=== PATIENT | female | born 1985 | race Two or more races ===

== ENCOUNTER 2018-03-20 11:12 | Inpatient (IN) | payer OTHER ==
[2018-03-20 13:13] LABS: URINE APPEARANCE CLEAR; URINE BILIRUBIN NEGATIVE (<2.0 mg/dL); URINE COLOR YELLOW; URINE GLUCOSE (UA) NEGATIVE (NEGATIVE); URINE KETONE NEGATIVE (NEGATIVE); URINE LEUK ESTERASE TRACE (NEGATIVE); URINE NITRITE NEGATIVE (NEGATIVE); URINE PROTEIN NEGATIVE (NEGATIVE); URINE UROBILINOGEN NEGATIVE mg/dL (0.2-1.0)
[2018-03-20 13:54] LABS: BASO % 0.5 % (0-2.0); EOS % 0.9 % (0-4.5); HEMATOCRIT 38.1 % (32.4-45.2); HEMOGLOBIN 12.9 GM/dL (10.7-15.3); LYMPH % 20.5 % (8-40); MCH 28.8 pg (25.7-33.7); MCHC 33.8 g/dl (32.0-36.0); MEAN CELL VOLUME 85.1 fl (80-96); MEAN PLT VOLUME 11.2 fl (7.5-11.1); MONO % 9.2 % (3.8-10.2); NEUT % 68.9 % (42.8-82.8); PLATELET COUNT 215 K/MM3 (134-434); RBC 4.48 M/mm3 (3.60-5.2); RDW 14.6 % (11.6-15.6); RETICULOCYTES 1.45 % (0.5-1.5); WHITE BLOOD COUNT 9.1 K/mm3 (4.0-10.0)
[2018-03-20 14:01] LABS: ANION GAP 8 MMOL/L (8-16); BLOOD UREA NITROGEN 11 mg/dL (7-18); CALCIUM 8.8 mg/dL (8.5-10.1); CHLORIDE 108 mmol/L (98-107); CO2 22 mmol/L (21-32); CREATININE 0.7 mg/dL (0.55-1.02); GLUCOSE,RANDOM 69 mg/dL (74-106); POTASSIUM 4.3 mmol/L (3.5-5.1); SGPT/ALT 15 U/L (12-78); SODIUM 138 mmol/L (136-145); URIC ACID 4.9 mg/dL (2.6-7.2)
[2018-03-20 14:05] LABS: GAMMA GLUTAMYL TRANSPEPTIDASE 25 U/L (5-85); SGOT/AST 11 U/L (15-37)
[2018-03-20 14:06] LABS: INR 0.9 (0.83-1.09); PROTHROMBIN TIME (PATIENT) 10.2 SEC (9.7-13.0)
[2018-03-20 14:09] LABS: ACTIVATED PTT 27.1 SECONDS (25.2-36.5)
[2018-03-20 14:12] LABS: EPI CELLS RARE /HPF (FEW)
[2018-03-20] MEDS ORDERED: ELECTROLYTE-148 SOLN 500 ML IV ONE ×2 (15:15→15:45)
[2018-03-20] MEDS ORDERED: TUBERCULIN PPD 5 TU/0.1ML SYRINGE (IN PATIENT USE ONLY) ID ONE (15:15)
[2018-03-20] MEDS ORDERED: CITRIC ACID/SODIUM CITRATE 30 ML UNIT-DOSE CUP PO ONE (15:15)
[2018-03-20 15:30] VITALS: BMI 34.9
[2018-03-20] MEDS ORDERED: OXYTOCIN 20 UNITS in 0.9% NS 40 UNIT/2,000 ML INFUS.BAG IV ONE (16:06)
[2018-03-20] MEDS ORDERED: morphine SULFATE/Preservative Free 0.5 MG/ML (1cc Syringe) ONE (16:08)
[2018-03-20] MEDS ORDERED: PHENYLEPHRINE HCL 10 MG/1 ML SINGLE DOSE VIAL ONE (16:08)
[2018-03-20] MEDS ORDERED: SODIUM CHLORIDE 0.9% P/F 10 ML VIAL IJ ONE ×2 (16:09→16:10)
[2018-03-20] MEDS ORDERED: ceFAZolin SODIUM 1 GM VIAL ONE ×2 (16:10→23:04)
--- NOTE | 2018-03-20 16:32 | HP ---
Past Medical History - Primary Care Physician PCP:: Prateek Person - Admission Chief Complaint: 37 weeks, previous c/s, HTN , SGA, oligo, for repeat c/s History of Present Illness: 32 yo f 37 weeks with previous c/s , hx of SGA baby , hx of Oligo,and has gestational HTN , case discussed with M Dr Arroyo , advised delivery, risks discussed with patient , agreed to have repeat c/s, risks discussed History Source: Patient Limitations to Obtaining History: No Limitations - Past Medical History ...: 3 ...Para: 1 ...: 1 ...Induced : 1 ...EDC by Sono: 04/11/18 - Past Surgical History Past Surgical History: Yes: Hx Myomectomy: No Hx Transabdominal Cerclage: No - Smoking History Smoking history: Never smoked - Alcohol/Substance Use Hx Alcohol Use: No - Social History Usual Living Arrangement: Yes: With Spouse History of Recent Travel: No Home Medications - Allergies Allergies/Adverse Reactions: Allergies Allergy/AdvReac Type Severity Reaction Status Date / Time No Known Allergies Allergy Verified 03/20/18 12:04 - Home Medications Home Medications: Ambulatory Orders Vitamins (Sjr) - 1 tab PO DAILY 03/20/18 Physical Exam - Maternity Vital Signs: Vital Signs Temperature 98.4 F 03/20/18 15:00 Pulse Rate 63 03/20/18 15:00 Respiratory Rate 20 03/20/18 15:00 Blood Pressure 154/92 03/20/18 15:00 O2 Sat by Pulse Oximetry (%) - Labs Lab Results: CBC, BMP 03/20/18 13:13 03/20/18 13:13
[2018-03-20] MEDS ORDERED: morphine SULFATE/Preservative Free 0.5 MG/ML (1cc Syringe) SPIN ONE (16:36)
[2018-03-20] MEDS ORDERED: IBUPROFEN 600 MG TABLET (FP) PO PRN ×2 (16:56→17:39)
[2018-03-20] MEDS ORDERED: ONDANSETRON 4 MG/2 ML VIAL IVPUSH PRN (16:56)
[2018-03-20] MEDS ORDERED: METHYLERGONOVINE MALEATE 0.2 MG/1 ML AMP IM PRN (17:39)
[2018-03-20] MEDS ORDERED: BENZOCAINE 20% 57 GM BOTTLE TP PRN (17:39)
[2018-03-20] MEDS ORDERED: oxyCODONE HCL 5 MG TABLET PO PRN (17:39)
[2018-03-20] MEDS ORDERED: WITCH HAZEL 50% (TUCKS) 40 PAD/JAR PAD TP PRN (17:39)
[2018-03-20] MEDS ORDERED: BENZOCAINE 28 GM HEMORRHOIDAL OINTMENT PR PRN (17:39)
[2018-03-20] MEDS ORDERED: diphenhydrAMINE HCL 25 MG CAPSULE (FP) PO PRN (17:39)
[2018-03-20] MEDS ORDERED: OXYTOCIN 20 UNITS in 0.9% NS 20 UNIT/1,000 ML INFUS.BAG IV SCH (17:45)
[2018-03-20 18:31] LABS: VENOUS PC02 46.3 mmHg (38-52); VENOUS PH 7.31 (7.32-7.42); VENOUS PO2 26.8 mmHg (28-48)
[2018-03-20] MEDS ORDERED: LABETALOL HCL 200 MG TABLET (FP) PO PRN (18:48)
[2018-03-20] MEDS: NIFEdipine E.R. 30 MG TABLET (FP) PO SCH (19:30)
[2018-03-20] MEDS ORDERED: IBUPROFEN 800 MG/8 ML IJ IVPB ONE (19:41)
[2018-03-20] MEDS: IBUPROFEN 800 MG/8 ML IJ IVPB PRN (19:45)
[2018-03-20] MEDS ORDERED: MAGNESIUM 4GM/H20 - 4 GM/100 ML IVPB IVPB ONE (20:07)
[2018-03-20] MEDS ORDERED: MAGNESIUM SULFATE 20GM/500ML - 20 GM/500 ML INFUS.BAG ONE (20:07)
[2018-03-20] MEDS ORDERED: OXYTOCIN 20 UNITS in 0.9% NS 20 UNIT/1,000 ML INFUS.BAG IV ONE (20:45)
[2018-03-20] MEDS ORDERED: LACTATED RINGERS SOLUTION 1,000 ML IV SCH (21:00)
[2018-03-20] MEDS ORDERED: MAGNESIUM SULFATE IN WATER 4 GM/100 ML IVPB IVPB ONE (21:00)
[2018-03-20] MEDS ORDERED: MAGNESIUM SULFATE 20GM/500ML - 20 GM/500 ML INFUS.BAG IVPB ONE (21:30)
--- NOTE | 2018-03-20 22:37 | OP ---
DATE OF OPERATION: 03/20/2018 PREOPERATIVE DIAGNOSES: , 37 weeks, previous section, oligohydramnios, small for gestation age, -induced hypertension. POSTOPERATIVE DIAGNOSES: , 37 weeks, previous section, oligohydramnios, small for gestation age, -induced hypertension. PROCEDURE: Repeat low segment transverse section. SURGEON: Sanju Person MD FUNERAL ATTENDANT: OLEG York ANESTHESIA: Spinal. ANESTHESIOLOGIST: Adam Salgado MD ESTIMATED BLOOD LOSS: 500 mL. OPERATION: Patient was taken to the operating room, and under adequate spinal anesthesia, abdomen and perineum was prepped and draped. Pfannenstiel abdominal skin incision was made. Abdominal wall was cut layer by layer until peritoneum was exposed and incised. Upon entering the abdominal cavity, lower uterine segment was identified, and uterovesical fold of peritoneum established, bladder was pushed down. Then, with the lower blade of the Pablo retractor in the pelvis, a low transverse uterine incision was made. Incision extended laterally. Amniotic sac was entered, clear fluid, minimal amniotic fluid was noted. Head delivered without any difficulty. Live baby was delivered. Placenta was delivered manually. There was a true knot in the cord. Then the uterine cavity was cleaned of all the remaining tissue. Uterine incision was closed in 2 layers with first layer with 0 Biosyn continuous suture. The second layer with 0 Biosyn imbricating the first layer. Bladder flap was closed with 0 Biosyn continuously. Both tubes and ovaries were checked and normal. No active bleeding was seen. All the laparotomy pads, sponge, and instrument counts were correct. The peritoneum was closed with 0 Biosyn continuous suture. Muscles were brought together with interrupted suture of 0 Biosyn. Fascia was closed with 0 Biosyn continuous suture, subcutaneous fat with interrupted suture of 0 Biosyn, and the skin was closed with amador. The patient tolerated the procedure well, left the OR in good condition. SANJU PERSON M.D. /[id number]
[2018-03-20] MEDS: ACETAMINOPHEN 325 MG TABLET (FP) PO PRN (23:15)
[2018-03-20] MEDS: oxyCODONE HCL 5 MG TABLET PO PRN (23:15)
[2018-03-21] MEDS ORDERED: IBUPROFEN 800 MG/8 ML IJ IVPB ONE ×2 (01:27→07:14)
[2018-03-21] MEDS: IBUPROFEN 800 MG/8 ML IJ IVPB PRN ×2 (01:35→07:26)
[2018-03-21] MEDS ORDERED: MAGNESIUM SULFATE 20GM/500ML - 20 GM/500 ML INFUS.BAG ONE (06:12)
[2018-03-21 07:01] LABS: BASO % 0.6 % (0-2.0); EOS % 1.4 % (0-4.5); HEMATOCRIT 36.8 % (32.4-45.2); HEMOGLOBIN 12.2 GM/dL (10.7-15.3); LYMPH % 15.5 % (8-40); MCH 28.1 pg (25.7-33.7); MCHC 33.2 g/dl (32.0-36.0); MEAN CELL VOLUME 84.7 fl (80-96); MEAN PLT VOLUME 10.4 fl (7.5-11.1); MONO % 6.4 % (3.8-10.2); NEUT % 76.1 % (42.8-82.8); PLATELET COUNT 185 K/MM3 (134-434); RBC 4.35 M/mm3 (3.60-5.2); RDW 14.6 % (11.6-15.6); WHITE BLOOD COUNT 12.2 K/mm3 (4.0-10.0)
[2018-03-21] MEDS ORDERED: OXYTOCIN 20 UNITS in 0.9% NS 20 UNIT/1,000 ML INFUS.BAG IV ONE (07:51)
[2018-03-21] MEDS ORDERED: ceFAZolin SODIUM 1 GM VIAL ONE (07:51)
[2018-03-21] MEDS ORDERED: SODIUM CHLORIDE 100 ML IVPB ONE (07:52)
[2018-03-21] MEDS: CEFAZOLIN 1 GM in DEXTROSE 5%-WATER - 50 ML IVPB SCH ×2 (08:34)
[2018-03-21] MEDS ORDERED: OXYTOCIN 20 UNITS in 0.9% NS 20 UNIT/1,000 ML INFUS.BAG IV SCH (08:48)
[2018-03-21] MEDS: NIFEdipine E.R. 30 MG TABLET (FP) PO SCH (10:33)
[2018-03-21] MEDS: ENOXAPARIN NA (PORCINE) 40 MG/0.4 ML DISP.SYRIN SQ SCH (10:33)
[2018-03-21] MEDS: ACETAMINOPHEN 325 MG TABLET (FP) PO PRN ×3 (15:43→23:15)
[2018-03-21] MEDS: SIMETHICONE 80 MG TAB.CHEW (FP) PO PRN ×2 (15:45→20:00)
--- NOTE | 2018-03-21 17:20 | PN ---
Progress Note (short form) - Note Progress Note: Anesthesia post op note, POD#1, S/P under spinal. VSS. No apparent post anesthesia complications. signed off.
[2018-03-21] MEDS ORDERED: BISACODYL 10 MG SUPP.RECT RC PRN (17:39)
--- NOTE | 2018-03-21 22:41 | PN ---
Progress Note (short form) - Note Progress Note: 9am pod1 s/p c/s . HTN , on MGso4, had headache last night , no headache now CBC, BMP 03/21/18 06:25 03/20/18 13:13 Last Vital Signs Temp Pulse Resp BP Pulse Ox 99.0 F 111 H 18 143/94 03/21/18 21:25 03/21/18 21:25 03/21/18 21:25 03/21/18 21:25 abdomen soft, no distension, no cva , no RUQ tenderness incision dry, clean no calf tenderness urine out put adequate plan monitor BP , ambulate cont MG , and procardia
[2018-03-21] MEDS: oxyCODONE HCL 5 MG TABLET PO PRN (23:15)
[2018-03-21] MEDS: DEXTROSE 5%-LACTATED RINGERS 1,000 ML IV SCH (23:35)
[2018-03-21] MEDS ORDERED: DEXTROSE 5%-LACTATED RINGERS 1,000 ML IV SCH (23:45)
[2018-03-22] MEDS: oxyCODONE HCL 5 MG TABLET PO PRN ×4 (06:15→21:59)
[2018-03-22] MEDS: ACETAMINOPHEN 325 MG TABLET (FP) PO PRN ×4 (06:15→21:59)
--- NOTE | 2018-03-22 07:57 | PN ---
Progress Note (short form) - Note Progress Note: pod 2 s/p repeat c/s HTN. on procardia no headache, ambulating , passing gas CBC, BMP 03/21/18 06:25 03/20/18 13:13 Last Vital Signs Temp Pulse Resp BP Pulse Ox 98.3 F 97 H 18 134/94 03/22/18 05:19 03/22/18 05:19 03/22/18 05:19 03/22/18 05:19 abdomen soft, no distension, no cva incision dry, clean no calf tenderness trace edema impression pod2 , htn medical evaluation of HTN ambulate cbc in am
--- NOTE | 2018-03-22 08:33 | DS ---
Physical Exam-AFFILIATE MANAGER Vital Signs: Vital Signs Temperature 98.3 F 03/22/18 05:19 Pulse Rate 97 H 03/22/18 05:19 Respiratory Rate 18 03/22/18 05:19 Blood Pressure 134/94 03/22/18 05:19 O2 Sat by Pulse Oximetry (%) Constitutional: Yes: Well Nourished, No Distress, Calm Eyes: Yes: WNL, Conjunctiva Clear, EOM Intact HENT: Yes: WNL, Atraumatic, Normocephalic Neck: Yes: WNL, Supple, Trachea Midline Cardiovascular: Yes: WNL, Regular Rate and Rhythm Respiratory: Yes: WNL, Regular, CTA Bilaterally Gastrointestinal: Yes: WNL ...Rectal Exam: Yes: WNL Renal/: Yes: WNL ....Post : Yes: Uterus firm, Uterus non-tender, Slight lochia rubra Breast(s): Yes: WNL Musculoskeletal: Yes: WNL Extremities: Yes: WNL Edema: Yes Edema: LLE: Trace, RLE: Trace Integumentary: Yes: WNL Wound/Incision: Yes: Clean/Dry, Well Approximated, [place] Intact Neurological: Yes: WNL, Alert, Oriented ...Motor Strength: WNL Psychiatric: Yes: WNL, Alert, Oriented Labs: CBC, BMP 03/21/18 06:25 03/20/18 13:13 Delivery - Delivery Section: Repeat, Low Flap Transverse Type of Anesthesia: Spinal Episiotomy/Laceration: None EBL (cc): 700 Delivery, Single - Stages of Labor Date of Delivery: 03/20/18 Time of Delivery: 16:51 Time Placenta Delivered: 16:53 Placenta: Yes: Expressed - Condition of Infant Gear Lapper/Coper Hand Present: Yes Name: Reilly Fong Infant Gender: Male Weight: 4 lb 13 oz Position: Left, Right, OT Total Hours ROM (Hrs/Mins): 1 min. - 1 Minute Total Score: 8 5 Minutes Total Score: 9 - Feeding Plan Initial Plan: Elected not to breastfeed exclusively throughout hospitalization Remarks - Remarks Remarks: pregnanct 37 weeks, previous c/s, SGA, PIH , oligo Discharge Summary Reason For Visit: Procedures: Principal: repeat LST c/s Other Procedures: BTL Condition: Good - Instructions Diet, Activity, Other Instructions: regular diet, no intercourse, follow up office 1 week, if headache ,fever, pain ,heavy vaginal bleeding call MD - Home Medications Comprehensive Discharge Medication List: Ambulatory Orders Vitamins (Sjr) - 1 tab PO DAILY 03/20/18
[2018-03-22] MEDS: NIFEdipine E.R. 30 MG TABLET (FP) PO SCH (09:56)
[2018-03-22] MEDS: SIMETHICONE 80 MG TAB.CHEW (FP) PO PRN ×3 (09:56→21:59)
[2018-03-22] MEDS: ENOXAPARIN NA (PORCINE) 40 MG/0.4 ML DISP.SYRIN SQ SCH (09:56)
[2018-03-22] MEDS ORDERED: DIPHTH,PERTUSS(ACELL),TET 0.5 ML DISP.SYRIN IM ONE (10:00)
--- NOTE | 2018-03-22 13:01 | CONSULT ---
Consult Consult Specialty:: Nephrology ( Jose Raul/ Juwan) Referred by:: Dr. Fernandez Reason for Consultation:: Post Hypertension - History of Present Illness Chief Complaint: The patient had LSCS two days ago, and is now with Hypertension. The patient has an 18 month old child at home. Her last was uneventful. But was LSCS. 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 Gastrointestinal: No: Constipation, Diverticulitis, Gastritis Hepatobiliary: No: Cholelithiasis Renal/: No: Renal Inusuff, Hematuria Endocrine: No: Diabetes Insipidus, Diabetes Mellitus, Hyperthyroidism - Past Surgical History Past Surgical History: Yes: - Alcohol/Substance Use Hx Alcohol Use: No - Smoking History Smoking history: Never smoked - Social History History of Recent Travel: No Home Medications - Allergies Allergies/Adverse Reactions: Allergies Allergy/AdvReac Type Severity Reaction Status Date / Time No Known Allergies Allergy Verified 03/20/18 12:04 - Home Medications Home Medications: Ambulatory Orders Vitamins (Sjr) - 1 tab PO DAILY 03/20/18 Review of Systems - Review of Systems Constitutional: reports: No Symptoms Eyes: reports: No Symptoms HENT: reports: No Symptoms Neck: reports: No Symptoms Cardiovascular: reports: No Symptoms. denies: Chest Pain, Edema Respiratory: reports: No Symptoms. denies: Cough Gastrointestinal: reports: No Symptoms Genitourinary: reports: No Symptoms. denies: Burning, Dysuria Musculoskeletal: reports: No Symptoms Integumentary: reports: No Symptoms Neurological: reports: No Symptoms Endocrine: reports: No Symptoms Hematology/Lymphatic: reports: No Symptoms Physical Exam Vital Signs: Vital Signs Temperature 98.2 F 03/22/18 10:00 Pulse Rate 91 H 03/22/18 10:00 Respiratory Rate 03/22/18 10:00 Blood Pressure 140/99 03/22/18 10:00 O2 Sat by Pulse Oximetry (%) Constitutional: Yes: Well Nourished, No Distress HENT: Yes: Atraumatic Neck: Yes: Supple Cardiovascular: Yes: Regular Rate and Rhythm, S1, S2 Respiratory: Yes: Regular, CTA Bilaterally Gastrointestinal: Yes: Normal Bowel Sounds, Soft Renal/: Yes: WNL Extremities: Yes: WNL Edema: No Labs: CBC, BMP 03/21/18 06:25 03/20/18 13:13 Problem List - Problems (1) essential hypertension during , delivered Code(s): O10.03 - PRE-EXISTING ESSENTIAL HYPERTENSION COMP THE PUERPERIUM Assessment/Plan 32 y/o female with Post- Hypertension. Started on Procardia XL 30 mg daily. Plan: Add labetelol to the regimen. Use NSAIDS sparingly only. Thanks you. Will follow with you. Deidre Blunt MD
[2018-03-22] MEDS: LABETALOL HCL 200 MG TABLET (FP) PO SCH ×2 (13:50→21:50)
[2018-03-22] MEDS ORDERED: LABETALOL HCL 200 MG TABLET (FP) PO ONE (18:00)
[2018-03-22] MEDS: SENNOSIDES/DOCUSATE COMBO (SENNA PLUS) TABLET (UD) PO PRN (21:59)
[2018-03-23] MEDS: LABETALOL HCL 200 MG TABLET (FP) PO SCH ×2 (05:51→08:01)
[2018-03-23 08:26] LABS: BASO % 0.4 % (0-2.0); EOS % 1.7 % (0-4.5); HEMATOCRIT 33.6 % (32.4-45.2); HEMOGLOBIN 11.1 GM/dL (10.7-15.3); LYMPH % 16.3 % (8-40); MCH 28.2 pg (25.7-33.7); MEAN CELL VOLUME 85.7 fl (80-96); MEAN PLT VOLUME 9.6 fl (7.5-11.1); MONO % 6.5 % (3.8-10.2); NEUT % 75.1 % (42.8-82.8); PLATELET COUNT 189 K/MM3 (134-434); RBC 3.92 M/mm3 (3.60-5.2); RDW 15.1 % (11.6-15.6); WHITE BLOOD COUNT 12.2 K/mm3 (4.0-10.0)
[2018-03-23] MEDS: ENOXAPARIN NA (PORCINE) 40 MG/0.4 ML DISP.SYRIN SQ SCH (09:53)
[2018-03-23] MEDS: ACETAMINOPHEN 325 MG TABLET (FP) PO PRN ×2 (09:54→18:39)
[2018-03-23] MEDS: SIMETHICONE 80 MG TAB.CHEW (FP) PO PRN ×2 (09:54→18:39)
[2018-03-23] MEDS: oxyCODONE HCL 5 MG TABLET PO PRN ×2 (09:54→19:35)
[2018-03-23] MEDS: NIFEdipine E.R. 30 MG TABLET (FP) PO SCH (12:08)
--- NOTE | 2018-03-23 12:32 | PN ---
Progress Note (short form) - Note Progress Note: Renal follow up for hypertension Pt seen and examined at the bedside no acute complaints denies any dizziness, RODRÍGUEZ, blurry vision, N/V/D Vital Signs Temperature 98.3 F 03/23/18 08:00 Pulse Rate 93 H 03/23/18 12:00 Respiratory Rate 20 03/23/18 12:00 Blood Pressure 135/89 03/23/18 12:00 O2 Sat by Pulse Oximetry (%) Intake & Output 03/20/18 03/21/18 03/22/18 03/23/18 23:59 23:59 23:59 23:59 Intake Total 2400 7562 570 Output Total 1100 5650 700 Balance 1300 1912 -130 Weight 104.326 kg NAD Trace LE edema CBC, BMP 03/23/18 07:45 03/20/18 13:13 Laboratory Tests 03/20/18 03/20/18 13:13 13:13 GGT 25 AST 11 L ALT 15 Current Medications Acetaminophen (Tylenol -) 650 mg PO Q4H PRN PRN Reason: FEVER Last Admin: 03/23/18 09:54 Dose: 650 mg Benzocaine (Americaine 20% [place] -) 1 spray TP DAILY PRN PRN Reason: Pain - Topical Benzocaine (Americaine Ointment -) 1 applic SC DAILY PRN PRN Reason: Pain - Topical Bisacodyl (Dulcolax Suppository -) 10 mg RC DAILY PRN PRN Reason: CONSTIPATION Last Admin: 03/21/18 21:45 Dose: 10 mg Diphenhydramine HCl (Benadryl -) 25 mg PO Q8H PRN PRN Reason: FOR ITCHING Enoxaparin Sodium (Lovenox -) 40 mg SQ DAILY [facility] Last Admin: 03/23/18 09:53 Dose: 40 mg Ibuprofen (Motrin -) 600 mg PO Q4H PRN PRN Reason: PAIN LEVEL 1-5 Ibuprofen (Motrin -) 600 mg PO Q4H PRN PRN Reason: PAIN LEVEL 1 - 3 Labetalol HCl (Normodyne -) 200 mg PO Q6H PRN PRN Reason: HYPERTENSION Methylergonovine Maleate (Methergine Injection -) 0.2 mg IM Q4H PRN PRN Reason: EXCESSIVE BLEEDING Nifedipine (Procardia Xl -) 30 mg PO DAILY [facility] Last Admin: 03/23/18 12:08 Dose: 30 mg Ondansetron HCl (Zofran Injection) 4 mg IVPUSH Q4H PRN PRN Reason: NAUSEA Oxycodone HCl (Roxicodone -) 5 mg PO Q4H PRN PRN Reason: PAIN LEVEL 4 - 6 Last Admin: 03/21/18 20:00 Dose: 5 mg Oxycodone HCl (Roxicodone -) 10 mg PO Q4H PRN PRN Reason: PAIN LEVEL 7 - 10 Last Admin: 03/23/18 09:54 Dose: 10 mg Senna/Docusate Sodium (Pericolace -) 2 tablet PO HS PRN PRN Reason: CONSTIPATION Last Admin: 03/22/18 21:59 Dose: 2 tablet Simethicone (Mylicon -) 80 mg PO Q4H PRN PRN Reason: GAS Last Admin: 03/23/18 09:54 Dose: 80 mg Witch Anne/Glycerin (Tucks Pads -) 1 pad TP DAILY PRN PRN Reason: Pain - Topical 32 year old woman s/p C- section with hypertension # hypertension secondary to PIH vs. Preeclampsia # s/p BP improved Continue Nifedpine 30mg Daily Will keep Labetalol PRN for SBP > 160 or DBP > 100 anticipate discharge tomorrow low salt diet, avoid excessive NSAID use Logan Echeverria DO
--- NOTE | 2018-03-23 13:16 | PN ---
Progress Note (short form) - Note Progress Note: pod 3 no headache, no blurred vision, mild low abdominal cramps CBC, BMP 03/23/18 07:45 03/20/18 13:13 Last Vital Signs Temp Pulse Resp BP Pulse Ox 98.3 F 93 H 20 135/89 03/23/18 08:00 03/23/18 12:00 03/23/18 12:00 03/23/18 12:00 abdomen soft, no distension, no cav no RUQ tenderness ext, no edema impression bp better controlled this am will cont, nifedpine with labetalol prn
[2018-03-23] MEDS: LABETALOL HCL 200 MG TABLET (FP) PO PRN (18:04)
[2018-03-23] MEDS: SENNOSIDES/DOCUSATE COMBO (SENNA PLUS) TABLET (UD) PO PRN (19:35)
[2018-03-24] MEDS: oxyCODONE HCL 5 MG TABLET PO PRN (01:42)
[2018-03-24] MEDS: SIMETHICONE 80 MG TAB.CHEW (FP) PO PRN (01:42)
[2018-03-24] MEDS: ACETAMINOPHEN 325 MG TABLET (FP) PO PRN (01:43)
[2018-03-24] MEDS: LABETALOL HCL 200 MG TABLET (FP) PO PRN (01:49)
[2018-03-24] MEDS: NIFEdipine E.R. 30 MG TABLET (FP) PO SCH (10:07)
[2018-03-24] MEDS: ENOXAPARIN NA (PORCINE) 40 MG/0.4 ML DISP.SYRIN SQ SCH (10:08)
--- NOTE | 2018-03-24 11:30 | PN ---
Progress Note (short form) - Note Progress Note: Renal follow up for hypertension Pt seen and examined at the bedside no acute complaints no RODRÍGUEZ, CP, blurry vision for discharge home today Vital Signs Temperature 98.2 F 03/24/18 08:08 Pulse Rate 83 03/24/18 08:08 Respiratory Rate 20 03/24/18 08:08 Blood Pressure 139/88 03/24/18 08:08 O2 Sat by Pulse Oximetry (%) NAD Trace LE edema CBC, BMP 03/23/18 07:45 03/20/18 13:13 Current Medications Acetaminophen (Tylenol -) 650 mg PO Q4H PRN PRN Reason: FEVER Last Admin: 03/24/18 01:43 Dose: 650 mg Benzocaine (Americaine 20% [place] -) 1 spray TP DAILY PRN PRN Reason: Pain - Topical Benzocaine (Americaine Ointment -) 1 applic AL DAILY PRN PRN Reason: Pain - Topical Bisacodyl (Dulcolax Suppository -) 10 mg RC DAILY PRN PRN Reason: CONSTIPATION Last Admin: 03/21/18 21:45 Dose: 10 mg Diphenhydramine HCl (Benadryl -) 25 mg PO Q8H PRN PRN Reason: FOR ITCHING Enoxaparin Sodium (Lovenox -) 40 mg SQ DAILY [facility] Last Admin: 03/24/18 10:08 Dose: 40 mg Ibuprofen (Motrin -) 600 mg PO Q4H PRN PRN Reason: PAIN LEVEL 1 - 3 Labetalol HCl (Normodyne -) 200 mg PO Q6H PRN PRN Reason: HYPERTENSION Last Admin: 03/24/18 01:49 Dose: 200 mg Methylergonovine Maleate (Methergine Injection -) 0.2 mg IM Q4H PRN PRN Reason: EXCESSIVE BLEEDING Nifedipine (Procardia Xl -) 30 mg PO DAILY [facility] Last Admin: 03/24/18 10:07 Dose: 30 mg Ondansetron HCl (Zofran Injection) 4 mg IVPUSH Q4H PRN PRN Reason: NAUSEA Oxycodone HCl (Roxicodone -) 5 mg PO Q4H PRN PRN Reason: PAIN LEVEL 6-10 Last Admin: 03/24/18 01:42 Dose: 5 mg Senna/Docusate Sodium (Pericolace -) 2 tablet PO HS PRN PRN Reason: CONSTIPATION Last Admin: 03/23/18 19:35 Dose: 2 tablet Simethicone (Mylicon -) 80 mg PO Q4H PRN PRN Reason: GAS Last Admin: 03/24/18 01:42 Dose: 80 mg Witch Anne/Glycerin (Tucks Pads -) 1 pad TP DAILY PRN PRN Reason: Pain - Topical 32 year old woman s/p C- section with hypertension # hypertension secondary to PIH vs. Preeclampsia # s/p BP controlled well on Procardia Will discharge home on Procardia 30mg Daily Advised to observe a low salt diet and avoid excessive NSAIDs Asked to check BP at home twice daily To follow up for BP monitoring in our office in 1 week. Cautioned pt regarding symptoms of hypotension and advised pt to contact our office if she were to experience those symptoms. Logan Echeverria DO
--- NOTE | 2018-03-24 13:36 | PN ---
Progress Note (short form) - Note Progress Note: pod 4 doing well, no c/o . on procardia CBC, BMP 03/23/18 07:45 03/20/18 13:13 Last Vital Signs Temp Pulse Resp BP Pulse Ox 98.2 F 83 20 139/88 03/24/18 08:08 03/24/18 08:08 03/24/18 08:08 03/24/18 08:08 abdomen soft, no distension, no cva incision dry, healing well no claf tenderness plan d/c home as per DR Echeverria, follow up with him 1 week, follow up office on friday for amador removal
[2018-03-24 14:03] VITALS: BP 124/84; PULSE 92; TEMP 98.3
--- NOTE | 2018-03-31 16:58 | PATH ---
Surgical Pathology Report Patient Name: AICHA AMADOR [facility]. Rec. #: [id number] /Age/Gender: 1985 (Age: 32) / F Account: [id number] Location: [facility] OBS/INTEGRATED CIRCUIT DESIGN ENGINEER Taken: 03/20/2018 Received: 03/23/2018 Reported: 03/31/2018 Physicians: Prateek Person M.D. Specimen(s) Received A: PLACENTA B: LEFT PORTION OF FALLOPIAN TUBE C: RIGHT PORTION OF FALLOPIAN TUBE Clinical History , 36.6 gestational weeks, hypertension, oligo and IUGR Final Diagnosis A. PLACENTA, SECTION: 308 G THIRD TRIMESTER PLACENTA WITH TRIVASCULAR UMBILICAL CORD, FOCAL INTRAPARENCHYMAL INFARCT (LESS THAN 10% OF PLACENTAL SURFACE), AND MILD ACUTE CHORIOAMNIONITIS. B. FALLOPIAN TUBE, LEFT, PARTIAL EXCISION: FULL LUMINAL PORTION OF UNREMARKABLE FALLOPIAN TUBE. C. FALLOPIAN TUBE, RIGHT, PARTIAL EXCISION: FULL LUMINAL PORTION OF UNREMARKABLE FALLOPIAN TUBE. Electronically Signed Isabel Zazueta M.D. Gross Description A. The specimen is received fresh labeled placenta and is a 308 gram, 13.5 x 11.0 x 3.0 cm. placenta with attached membranes and umbilical cord. The attached membranes are rondon, thick, cloudy and insert marginally. The umbilical cord measures 34 cm. in length and averages 1.2 cm. in diameter. The cord inserts eccentrically, 1.5 cm. to the nearest margin. There is a true knot present in the umbilical cord. Cut surface of the umbilical cord reveals 3 vessels. The surface is villar-blue with minimal fibrin deposition and appropriate caliber vessels. The maternal surface is red-brown with focal defects. Sectioning reveals a 1.3 cm in greatest dimension intraparenchymal lesion. The remaining placental parenchyma is red-brown and spongy. Yardage Control Operator sections are submitted in 4 cassettes as follows: 1-membrane roll and umbilical cord; 2-lesion; 3-4-full thickness sections of placenta. B. Received in formalin labeled "left portion of fallopian tube," a 1.2 cm in length portion of fallopian tube. No fimbria are present. The outer surface is rondon-figueroa and smooth. Sectioning reveals an unremarkable lumen. Yardage Control Operator sections are submitted in one cassette. C. Received in formalin labeled "right fallopian tube," is a 1.4 cm in length portion of fallopian tube. No fimbria are present. The outer surface is rondon-figueroa and smooth. Sectioning reveals an unremarkable lumen. Yardage Control Operator sections are submitted in one cassette. 03/30/2018 [facility]03/30/2018
== END 2018-03-24 15:50 | disposition home or self-care (01) | DRG 540 ==
LOC: JDEL 11:12 → JLDR 14:30 → J3W 03-21 08:10 → JLDR 03-21 08:29 → J3W 03-21 13:20
PROVIDERS: ADMIT Obstetrics & Gynecology; ATTEND Obstetrics & Gynecology
PROC: 10D00Z1 Extraction of Products of Conception, Low, Open Approach (ICD-10-PCS; principal; 2018-03-20)
DX: O41.03X0 Oligohydramnios, third trimester, not applicable or unspecified (principal); O36.5990 Maternal care for other known or suspected poor fetal growth, unspecified trimester, not applicable or unspecified; O34.219 Maternal care for unspecified type scar from previous cesarean delivery; O13.9 Gestational [pregnancy-induced] hypertension without significant proteinuria, unspecified trimester; O13.5 Gestational [pregnancy-induced] hypertension without significant proteinuria, complicating the puerperium; Z3A.37 37 weeks gestation of pregnancy; Z37.0 Single live birth
CPT/HCPCS: 36415; 80048; 81003; 81015; 82570; 82803; 82977; 83010; 83735; 84156; 84450; 84460; 84550; 85025; 85032; 85044; 85610; 85730; 86593; 86850; 86900; 86901; 88302-TC; 88307-TC; 90715